=== PATIENT | female | born 1945 | race Two or more races ===

== ENCOUNTER 2018-01-29 16:13 | Outpatient (CLI) | payer OTHER | END 2018-01-29 16:24 | disposition home or self-care (01) | LOC: SONOGRAMA 16:13 | DX: E03.8 Other specified hypothyroidism (principal); E04.2 Nontoxic multinodular goiter ==

== ENCOUNTER → 2018-02-20 | Outpatient (CLI) | payer OTHER | END | disposition home or self-care (01) | LOC: NUCLEAR 02-19 15:00 | DX: I87.2 Venous insufficiency (chronic) (peripheral) (principal) ==

== ENCOUNTER 2021-02-02 13:59 | Outpatient (CLI) | payer OTHER | END 2021-02-02 14:02 | disposition home or self-care (01) | LOC: NUCLEAR 13:59 | PROVIDERS: ATTEND Internal Medicine | DX: M81.0 Age-related osteoporosis without current pathological fracture (principal) ==

== ENCOUNTER 2021-02-08 08:35 | Outpatient (CLI) | payer OTHER | END 2021-02-08 08:48 | disposition home or self-care (01) | LOC: SONOGRAMA 08:35 | PROVIDERS: ATTEND Internal Medicine | DX: E04.1 Nontoxic single thyroid nodule (principal) ==

== ENCOUNTER 2022-10-21 09:54 | Outpatient (CLI) | payer OTHER | END 2022-10-21 10:11 | disposition home or self-care (01) | LOC: SONOGRAMA 09:54 | PROVIDERS: ATTEND Specialist | DX: R10.31 Right lower quadrant pain (principal); R10.32 Left lower quadrant pain ==

== ENCOUNTER → 2022-11-25 | Outpatient (CLI) | payer OTHER | END | disposition home or self-care (01) | LOC: MAMO-SONO 08:57 | PROVIDERS: ATTEND Specialist | DX: N60.11 Diffuse cystic mastopathy of right breast (principal); N60.12 Diffuse cystic mastopathy of left breast; I10 Essential (primary) hypertension ==

== ENCOUNTER 2024-06-11 14:04 | Outpatient (CLI) | payer OTHER | END 2024-06-11 14:16 | disposition home or self-care (01) | LOC: SONOGRAMA 14:04 | PROVIDERS: ATTEND Internal Medicine | DX: E04.2 Nontoxic multinodular goiter (principal) ==